=== PATIENT | male | born 1975 | race Caucasian/White ===

== ENCOUNTER 2019-04-18 12:08 | Inpatient (IN) ==
[2019-04-18] MEDS ORDERED: *HR* HYDROmorphone (PF) 1 MG/ML SYRINGE IVP ONE ×2 (12:18→14:34)
[2019-04-18] MEDS ORDERED: Ondansetron 4 MG/2 ML VIAL IVP ONE (12:18)
--- NOTE | 2019-04-18 12:35 | Emergency Department Note ---
Disposition Clinical Impression: Intractable low back pain, Paresis of lower extremity Disposition: Admitted As Inpatient Condition: Good Forms: ED Satisfaction Letter Time of Disposition: 15:20 General Adult HPI - General Chief complaint: ED Back Pain/Injury Stated complaint: back pain Time Seen by Provider: 04/18/19 12:17 Source: patient, EMS Mode of arrival: EMS Limitations: no limitations Nursing Notes Reviewed: Yes Vital Signs Reviewed: Yes - History of Present Illness HPI Narrative: 3-year-old male years of chronic low back pain had "nerves." By pain management has not seen them since. His just learned to live with it states that since Wednesday he has been mostly bedbound due to the pain he said he try to get up today 3 different times felt like something locked up in his legs were too weak he fell to the floor he did not hit he did not injure his head or neck is not on blood thinners. Denies any change of bowel or bladder habits. No recent medication changes. No ill contacts exotic food or recent travel. Patient says he has numbness in both legs but weakness in his right leg greater than his left. It hurts when he moves it but he also feels weak. About the waist there is no other complaints at all. This has never happened before. Patient denies IV drug use. Pain Scale: 6 - Related Data Home Medications Medication Instructions Recorded Confirmed Buspirone HCl [Buspar] 15 mg PO BID 10/28/15 06/15/18 Montelukast [Singulair] 10 mg PO DAILY 10/28/15 06/15/18 Tizanidine HCl [Zanaflex] 4 mg PO TID 10/28/15 06/15/18 Cymbalta 60 mg PO DAILY 06/15/18 06/15/18 Duloxetine HCl 80 mg PO DAILY 06/15/18 06/15/18 Klonopin 0.5 mg PO BID PRN 06/15/18 06/15/18 Lidoderm 5% patch 1 patch TD DAILY 06/15/18 06/15/18 Symbicort 80/4.5 80 mcg AER BID 06/15/18 06/15/18 Ventolin Hfa 108 mcg AER Q4H PRN 06/15/18 06/15/18 Previous Rx's Medication Instructions Recorded Clindamycin [Cleocin] 150 mg PO Q6HR #7 capsule 06/15/18 HYDROcodone/Acet 5/325 mg [Atco 1 tab PO Q6H PRN 4 Days #14 tab 06/15/18 5-325 mg] Allergies Allergy/AdvReac Type Severity Reaction Status Date / Time aspirin [ASA] AdvReac internal Verified 10/28/15 11:39 bleeding Cortisone AdvReac muscle Verified 10/28/15 11:39 cramps influenza virus vaccine, AdvReac Nausea Verified 10/28/15 11:39 specific [Influenza Virus Vacc,Specific] shellfish derived AdvReac Vomiting Verified 10/28/15 11:39 optifoam AdvReac Rash Uncoded 06/24/16 08:38 All systems ED: reviewed and negative except as stated. Constitutional: Reports: weakness Musculoskeletal: Reports: back pain Past Medical History - Past Medical History Attestation: Yes The following information was validated with the patient. Source: patient Medical history: Reports: COPD, GERD, hypertension Surgical history: Reports: orthopedic, other Psychiatric history: Reports: anxiety, depression - Social History Smoking Status: Current every day smoker Smokeless Tobacco Status: No Alcohol use: Reports: none Drug use: Reports: none Physical Exam - General Limitations: no limitations General appearance: alert, in distress - Head Head exam: atraumatic, normocephalic - Eye Eye exam: Present: normal appearance, PERRL, EOMI - ENT ENT exam: normal exam, normal oropharynx - Neck Neck exam: Present: normal inspection, full ROM - Chest Chest inspection: Present: normal inspection, symmetric chest wall rise - Respiratory Respiratory exam: Present: normal lung sounds bilaterally - Cardiovascular Cardiovascular exam: Present: regular rate, normal rhythm - Abdominal Exam Abdominal exam: Present: soft, Non-Tender - Rectal Exam Rectal exam: Present: normal inspection, normal rectal tone, other (Normal perineal and perianal sensation) - Extremities Exam Extremities exam: Present: normal inspection, other (Decreased ability to do straight leg raise on both legs greater on the right than on the left) - Expanded Lower Extremity Exam Gait: not tested/not observed - Back Exam Back exam: Present: normal inspection, paraspinal tenderness, straight leg raise (R), straight leg raise (L). Absent: vertebral tenderness - Neurological Exam Neurological exam: Present: alert, oriented X3, CN II-XII intact - Psychiatric Psychiatric exam: Present: normal affect, normal mood - Skin Skin exam: Present: warm, dry, intact Course - Reevaluation(s) Reevaluation #1: 43-year-old male history of chronic low back pain with the nerve cauterization in the past presents with atraumatic back pain for the past several days since Wednesday unable to get up and move around he tried 3 times a day and fell down to do weakness in his legs. Physical examination shows he is in moderate distress he does have normal rectal tone and perianal sensation straight leg is positive both left and right he does have weakness in the left and right as far as raising the leg he has good dorsal flexion and extension. He has good pulses. He says he is decreased sensation but symmetrical. Patient will get IV Dilaudid patient will get a MRI noncontrast the lumbosacral spine. Patient has no red flags for epidural abscess. Disposition pending Time: 12:36 Reevaluation #2: Discussed case with the social sciences department chair she said he is on eligible for direct to short-term rehabilitation placement discussed case with the hospitalist Dr. Pritchett who accepted the patient stable condition. Time: 15:18 Vital Signs Temperature 98.3 F 04/18/19 12:11 Pulse Rate 61 04/18/19 12:11 Respiratory Rate 16 04/18/19 12:11 Blood Pressure 177/105 04/18/19 12:11 O2 Sat by Pulse Oximetry 99 04/18/19 12:11 Temperature 98.3 F 04/18/19 12:11 Pulse Rate 68 04/18/19 14:02 Respiratory Rate 16 04/18/19 14:02 Blood Pressure 186/88 04/18/19 14:02 O2 Sat by Pulse Oximetry 99 04/18/19 12:11 Oxygen Delivery Oxygen Delivery Room Air
[2019-04-18] MEDS ORDERED: Naloxone 0.4 MG/ML INJ IVP PRN (15:58)
[2019-04-18] MEDS ORDERED: clonazePAM 0.5 MG TABLET PO PRN (16:05)
[2019-04-18] MEDS ORDERED: Albuterol 2.5 MG/3 ML NEBULIZER IH PRN (16:06)
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
[2019-04-18] MEDS: tiZANidine 4 MG TABLET PO SCH (21:07)
[2019-04-18] MEDS: Ketorolac 30 MG/ML VIAL IVP PRN (21:08)
[2019-04-18] MEDS ORDERED: Budesonide/Formoterol 80/4.5 MDI IH SCH (22:00)
[2019-04-18] MEDS: Budesonide/Formoterol 160/4.5 1 PUFF INH IH SCH (22:02)
[2019-04-19] MEDS: *HR* Enoxaparin 40 MG/0.4 ML SYRINGE SQ SCH ×2 (06:44→07:00)
[2019-04-19] MEDS: Acetaminophen 325 MG TABLET PO PRN (06:44)
[2019-04-19] MEDS: Ondansetron 4 MG/2 ML VIAL IVP PRN (06:45)
[2019-04-19] MEDS: Budesonide/Formoterol 160/4.5 1 PUFF INH IH SCH ×2 (08:14→19:43)
[2019-04-19] MEDS: Tiotropium 18 MCG inhalation IH SCH (08:20)
[2019-04-19] MEDS: tiZANidine 4 MG TABLET PO SCH ×3 (08:40→20:49)
[2019-04-19 08:58] LABS: Basophils # 0.1 K/mcL (0.0-0.2); Basophils % 0.5 %; Eosinophils # 0.2 K/mcL (0.0-0.6); Eosinophils % 1.5 %; Hematocrit 42.8 % (37.5-50.1); Immature Granulocytes % 0.5 % (0-4); Lymphocytes # 2.8 K/mcL (0.6-4.6); Lymphocytes % 23.3 %; Mean Corpuscular Hemoglobin 32.4 pg (28.0-33.3); Mean Corpuscular Volume 92.4 fL (83.0-100.0); Mean Platelet Volume 9.8 fL (9.4-12.4); Monocytes # 1.3 K/mcL (0.0-1.3); Monocytes % 10.4 %; Neutrophils # 7.7 K/mcL (1.6-8.9); Platelet Count 229 K/mcL (140-400); Red Blood Count 4.63 M/mcL (4.19-5.50); Red Cell Distribution Width 12.8 % (11.5-14.5); Segmented Neutrophils % 63.8 %
[2019-04-19] MEDS ORDERED: NON-FORMULARY MEDICATION 1 EACH EACH (Tiotropium Bromide [Spiriva Respimat] 4 GM) IH SCH (09:00)
[2019-04-19 09:13] LABS: BUN/Creatinine Ratio 13 (6-26); Blood Urea Nitrogen 12 mg/dL (6-20); Calcium 9.3 mg/dL (8.6-10.3); Carbon Dioxide 31 mEq/L (23-29); Chloride 99 mEq/L (98-107); Glucose 130 mg/dL (70-105); Magnesium 1.8 mg/dL (1.6-2.6); Osmolality,Calculated 294 (280-300); Potassium 3.3 mEq/L (3.5-5.1); Sodium 141 mEq/L (136-145); eGFR For African Americans > 60 (> 60); eGFR For Non-African Americans > 60 (> 60)
--- NOTE | 2019-04-19 11:05 | Spine Progress Note ---
Date of Encounter: 04/19/19 Time of Encounter: 11:02 - Assessment and Plan (1) Lumbar degenerative disc disease Current Visit: Yes Status: Chronic On exam he is awake and alert in mild distress secondary to back pain. Afebrile vital signs stable. His hips move symmetrically. He fires all lower extremity motor groups with good strength bilaterally 5 on a motor scale. He has a negative straight leg raise. He has no clonus. MRI of the lumbar spine reveals mild degenerative changes and a disc bulge at L4-5 without significant foraminal or canal stenosis. Impression: 1) lumbar degenerative disc disease 2) back pain Plan: The patient does not require surgical intervention. He is given a be treated on the outpatient basis nonoperatively which include a formal physical therapy and low back program as well as consideration of interventional pain management strategies. We will set up follow-up with Dr. Stoddard in the spine Center, as he does not wish to return to Dr. Harley. Dr. Stoddard will arrange additional nonoperative treatments. Subjective Principal diagnosis: Back pain Interval history: Mr. Sahu a 43-year-old male whose had intermittent exacerbations of axial back pain associated with spasms. His most recent episode happened over the weekend. He states there was a period of time where he had difficulty moving his legs but this is transient and has resolved completely. He came into the emergency department due to his intractable pain. He has had prior treatment with Dr. Harley in pain management approximate 2 years ago which included medications , lumbar epidural steroid injections, and radiofrequency ablation. He also had physical therapy at that time. His current pain is a 3 on a pain scale controlled on a combination of Toradol and Tylenol. He denies radicular symptoms in the lower extremities, fevers or chills, or weakness the lower extremities. He denies bowel and bladder symptomatology. Objective Vital signs: Vital Signs Temp Pulse Resp BP Pulse Ox 04/19/19 08:18 18 95 04/19/19 06:21 98.2 F 80 18 164/87 95 04/19/19 03:03 97.6 F 57 17 159/90 97 04/18/19 22:41 98.1 F 64 17 143/77 97 04/18/19 22:03 16 98 04/18/19 21:47 167/88 04/18/19 20:54 98.3 F 66 14 180/104 95 04/18/19 19:50 18 157/88 04/18/19 16:23 65 16 173/103 04/18/19 14:02 68 16 186/88 04/18/19 12:11 98.3 F 61 16 177/105 99 Intake and Output 04/18/19 04/19/19 04/19/19 23:59 07:59 15:59 Intake Total 240 / 240 Output Total 150 / 150 550 / 550 Balance -150 / -150 -550 / -310 240 / -310 Intake: Oral 240 / 240 Output: Urine 150 / 150 550 / 550 Other: Meal Breakfast Percent of Meal Consumed 100% - Labs CBC & BMP: 04/19/19 08:32 04/19/19 08:32 Labs: Abnormal lab results WBC 12.0 K/mcL (4.3-11.1) H 04/19/19 08:32 Potassium 3.3 mEq/L (3.5-5.1) L 04/19/19 08:32 Carbon Dioxide 31 mEq/L (23-29) H 04/19/19 08:32 Glucose 130 mg/dL (70-105) H 04/19/19 08:32 Consult Discharge Plan - Plan Referrals: Rick Garcia MD [Primary Care Provider] -
--- NOTE | 2019-04-19 12:21 | Internal Med Progress Note ---
Hospitalist Progress Note - Encounter Date of Encounter: 04/19/19 Time of Encounter: 11:45 - Subjective Interval History: Seen at bedside, is feelign ebtter than yesterday. HIs back pain is also better than yesterday. Denies any trauma, fall, fever, chills, pullingg heavy weight. No overnigth events. - Exam Vitals: Temp Pulse Resp BP Pulse Ox 97.9 F 74 18 139/74 96 04/19/19 11:39 04/19/19 11:39 04/19/19 11:39 04/19/19 11:39 04/19/19 11:39 Exam: General: Alert and oriented, no physical distress, able to follow commands. HEENT: No thyromegaly, no lymphadenopathy, no discharge. Eyes: No discharge. Respiratory: Normal vesicular breathing, no added sounds, breathing equal in both sides. CVS: Normal heart sounds, no murmurs, no edema. Extremities: No peripheral edema, peripheral pulses intact.Reflexes 2+ in knee and ankle joints. Lymph nodes: No lymphadenopathy Gastrointestinal: Soft, nontender abdomen, normal abdominal sounds. No distention noted. Genitourinary: No paravertebral tenderness. Neurological: Alert and oriented. No focal deficits. - Assessment and Plan (1) Paresis of lower extremity Current Visit: Yes Status: Acute Assessment and Plan: -Improving, etiolgoy unlcear. -MRI of lumbar does reveal stable and no disc bulge at L4-L5 with associated central annular tear -Ortho on board, appreciate recommendations. -PT/OT on board, further plan as per PT/OT> -Continue with current pain management -Falls precautions (2) Intractable low back pain Current Visit: Yes Status: Acute Assessment and Plan: -Pain management with oxy and ketorolac. -Outpt pain mangemetn follow up recomemded. (3) HTN (hypertension) Current Visit: No Status: Chronic Assessment and Plan: -BP stable -Hydralazine as needed (4) COPD (chronic obstructive pulmonary disease) Current Visit: No Status: Chronic Assessment and Plan: -Not in acute exacerbation -Continue the breathing treaments -COntinue the home meds including spiriva nad symbicort (5) DVT prophylaxis Current Visit: Yes Status: Acute Assessment and Plan: -Lovenox (6) Hypokalemia Current Visit: Yes Status: Acute Assessment and Plan: -K of 3.3 -Repleted. -Repeeat levels tomorrow - Time Spent with Patient Total time spent is greater than 50% in coordination of care (as documented) at patient's floor/unit and/or counseling patient: Internal Medicine: Result - Labs CBC & Chem 7: 04/19/19 08:32 04/19/19 08:32 Labs: Short CBC 04/19/19 Range/Units 08:32 WBC 12.0 H (4.3-11.1) K/mcL Hgb 15.0 (12.9-16.9) g/dL Hct 42.8 (37.5-50.1) % Plt Count 229 (140-400) K/mcL Neutrophils # 7.7 (1.6-8.9) K/mcL BMP 04/19/19 08:32 Sodium 141 Potassium 3.3 L Chloride 99 Carbon Dioxide 31 H BUN 12 Creatinine 0.89 Glucose 130 H Calcium 9.3 - Impressions Impressions Lumbar Spine MRI 04/18/19 12:18 IMPRESSION: Stable annular disc bulge at L4-5 with associated central annular tear. D/ / Bakari Hammer MD / Bakari Hammer MD Interpreting Provider: Bakari Hammer MD Consult Discharge Plan - Plan Referrals: Rick Garcia MD [Primary Care Provider] - (3) HTN (hypertension) Qualifiers: Hypertension type: unspecified secondary hypertension Qualified Code(s): I15.9 - Secondary hypertension, unspecified; I15 - Secondary hypertension (4) COPD (chronic obstructive pulmonary disease) Qualifiers: COPD type: unspecified COPD Qualified Code(s): J44.9 - Chronic obstructive pulmonary disease, unspecified
[2019-04-19] MEDS: Ketorolac 30 MG/ML VIAL IVP PRN (16:53)
[2019-04-19] MEDS: Sucralfate 1 GM TABLET PO SCH (20:49)
[2019-04-19] MEDS: *HR* OxyCODONE Immed Rel 5 MG TABLET PO PRN (20:49)
[2019-04-20 02:49] LABS: BUN/Creatinine Ratio 13 (6-26); Blood Urea Nitrogen 11 mg/dL (6-20); Calcium 8.7 mg/dL (8.6-10.3); Carbon Dioxide 32 mEq/L (23-29); Chloride 103 mEq/L (98-107); Glucose 113 mg/dL (70-105); Osmolality,Calculated 290 (280-300); Potassium 3.8 mEq/L (3.5-5.1); Sodium 140 mEq/L (136-145); eGFR For African Americans > 60 (> 60); eGFR For Non-African Americans > 60 (> 60)
[2019-04-20] MEDS: Acetaminophen 325 MG TABLET PO PRN ×2 (05:47→11:46)
[2019-04-20] MEDS: Tiotropium 18 MCG inhalation IH SCH (08:11)
[2019-04-20] MEDS: Budesonide/Formoterol 160/4.5 1 PUFF INH IH SCH ×2 (08:13→20:40)
[2019-04-20] MEDS: *HR* Enoxaparin 40 MG/0.4 ML SYRINGE SQ SCH (08:52)
[2019-04-20] MEDS: tiZANidine 4 MG TABLET PO SCH ×3 (08:53→21:21)
[2019-04-20] MEDS: Sucralfate 1 GM TABLET PO SCH ×2 (08:53→21:21)
[2019-04-20] MEDS: *HR* OxyCODONE Immed Rel 5 MG TABLET PO PRN (08:53)
[2019-04-20] MEDS ORDERED: DULOXETINE PO SCH (09:00)
[2019-04-20] MEDS ORDERED: cloNIDine HCl 0.1 MG TABLET PO ONE (09:21)
[2019-04-20 12:31] LABS: Basophils % 0.3 %; Eosinophils % 0.4 %; Hematocrit 38.9 % (37.5-50.1); Immature Granulocytes % 1.1 % (0-4); Lymphocytes # 0.9 K/mcL (0.6-4.6); Lymphocytes % 7.8 %; Mean Corpuscular HGB Conc 34.4 g/dL (31.6-35.5); Mean Corpuscular Hemoglobin 31.7 pg (28.0-33.3); Monocytes # 0.2 K/mcL (0.0-1.3); Monocytes % 1.8 %; Neutrophils # 9.6 K/mcL (1.6-8.9); Platelet Count 180 K/mcL (140-400); Red Blood Count 4.23 M/mcL (4.19-5.50); Red Cell Distribution Width 13.1 % (11.5-14.5); Segmented Neutrophils % 88.6 %; White Blood Count 10.9 K/mcL (4.3-11.1)
[2019-04-20 12:54] LABS: Hemoglobin 13.4 g/dL (12.9-16.9)
--- NOTE | 2019-04-20 15:01 | Internal Med Progress Note ---
Hospitalist Progress Note - Encounter Date of Encounter: 04/20/19 Time of Encounter: 11:15 - Subjective Interval History: Seen at [facility]. Complaining of the pain in the lower back, complaining of the same pain and spasms in the back he had before coming to the hosp. . Patient denies any fever or chills. Looks like he is in distress. Deneis any dysuria, hematuria, diarrhea or constipation. Denies any SOB or chest pain. Denies sore throat - Exam Vitals: Temp Pulse Resp BP Pulse Ox 101.3 F H 101 16 150/84 94 04/20/19 10:50 04/20/19 11:17 04/20/19 10:50 04/20/19 10:50 04/20/19 11:17 Exam: General: Alert and oriented, moderate physical distress, able to follow commands. Respiratory: Normal vesicular breathing, no added sounds, breathing equal in bot h sides. CVS: Normal heart sounds, no murmurs, no edema. Extremities: No peripheral edema, peripheral pulses intact.Reflexes 2+ in knee and ankle joints. Lymph nodes: No lymphadenopathy Gastrointestinal: Soft, nontender abdomen, normal abdominal sounds. No distention noted. Genitourinary: No paravertebral tenderness. Neurological: Alert and oriented. No focal deficits. - Assessment and Plan (1) Paresis of lower extremity Current Visit: Yes Status: Acute Assessment and Plan: -Improving, etiolgoy unlcear. -MRI of lumbar does reveal stable and no disc bulge at L4-L5 with associated central annular tear -Ortho on board, appreciate recommendations. -PT/OT on board, today could not get PT/OT evaluation as the pt was not feeling goodd -Continue with current pain management -Falls precautions (2) Intractable low back pain Current Visit: Yes Status: Acute Assessment and Plan: -Pain management with oxy and ketorolac. -Outpt pain mangemetn follow up recomemded. (3) HTN (hypertension) Current Visit: No Status: Chronic Assessment and Plan: -BP was elevated in the mornin, is not any meidcations at home. -Was given clonidine 0.1 mg PO with some relief -Has been ordered hydralazine for the BP above 180 systolic -Cont to monitor (4) COPD (chronic obstructive pulmonary disease) Current Visit: No Status: Chronic Assessment and Plan: -Not in acute exacerbation -Continue the breathing treaments -COntinue the home meds including spiriva nad symbicort (5) DVT prophylaxis Current Visit: Yes Status: Acute Assessment and Plan: -Lovenox (6) Hypokalemia Current Visit: Yes Status: Acute Assessment and Plan: -resolved (7) Fever Current Visit: Yes Status: Acute Assessment and Plan: -He developed a fever of 101.3. -Etiology was uncleat -Pt was companing of the pain in the back before he developed the fever. -No hypotension but was mildly tachycardaic. -CBC was ordered [facility] showed normal count but mild neutrophil elevation. -Urine and blood cutures pending, -LActic acid normal -Went to see the pt again and the pt was sleeping comfortably. -Will chek the vitals again before initiaing the antibiotics. -Suspect he could be withdrawing from any controlled substance, wull order UDS. -If continues to have fever, or any other clinicla worseing, will initiate the antibiotcs. - Time Spent with Patient Total time spent is greater than 50% in coordination of care (as documented) at patient's floor/unit and/or counseling patient: Internal Medicine: Result - Labs CBC & Chem 7: 04/20/19 11:50 04/20/19 01:38 Labs: Short CBC 04/20/19 Range/Units 11:50 WBC 10.9 (4.3-11.1) K/mcL Hgb 13.4 D (12.9-16.9) g/dL Hct 38.9 (37.5-50.1) % Plt Count 180 (140-400) K/mcL Neutrophils # 9.6 H (1.6-8.9) K/mcL BMP 04/20/19 01:38 Sodium 140 Potassium 3.8 Chloride 103 Carbon Dioxide 32 H BUN 11 Creatinine 0.87 Glucose 113 H Calcium 8.7 - Impressions Impressions Chest X-Ray 04/20/19 11:19 IMPRESSION: 1. No focal consolidation. 2. A right-sided PICC line is not identified. Findings were discussed with Matt Painting MD at 12:09 pm on 04/20/2019. D/ / Katrina Simons MD / Katrina Simons MD Interpreting Provider: Katrina Simons MD Consult Discharge Plan - Plan Referrals: Rick Garcia MD [Primary Care Provider] - (3) HTN (hypertension) Qualifiers: Hypertension type: unspecified secondary hypertension Qualified Code(s): I15.9 - Secondary hypertension, unspecified; I15 - Secondary hypertension (4) COPD (chronic obstructive pulmonary disease) Qualifiers: COPD type: unspecified COPD Qualified Code(s): J44.9 - Chronic obstructive pulmonary disease, unspecified (7) Fever Qualifiers: Fever type: unspecified Qualified Code(s): R50.9 - Fever, unspecified
[2019-04-20] MEDS: Ketorolac 30 MG/ML VIAL IVP PRN (15:56)
[2019-04-20 17:08] LABS: Basophils # 0.1 K/mcL (0.0-0.2); Basophils % 0.4 %; Eosinophils # 0.1 K/mcL (0.0-0.6); Eosinophils % 0.5 %; Hematocrit 38.2 % (37.5-50.1); Immature Granulocytes % 0.7 % (0-4); Lymphocytes % 8.8 %; Mean Corpuscular Hemoglobin 31.9 pg (28.0-33.3); Mean Corpuscular Volume 93.6 fL (83.0-100.0); Monocytes # 1.2 K/mcL (0.0-1.3); Platelet Count 157 K/mcL (140-400); Red Blood Count 4.08 M/mcL (4.19-5.50); Red Cell Distribution Width 13.2 % (11.5-14.5); Segmented Neutrophils % 82.6 %
[2019-04-20 17:09] LABS: Lymphocytes # 1.6 K/mcL (0.6-4.6); Neutrophils # 14.5 K/mcL (1.6-8.9); White Blood Count 17.6 K/mcL (4.3-11.1)
[2019-04-20 17:22] LABS: Amphetamine Screen,Urine Negative ng/mL (Cutoff=1000); Barbiturate Screen,Urine Negative ng/mL (Cutoff=200); Benzodiazepines Screen,Urine Negative ng/mL (Cutoff=200); Cannabinoid Screen,Urine Negative ng/mL (Cutoff = 50); Cocaine Screen,Urine Negative ng/mL (Cutoff= 300); Opiate Screen,Urine Negative ng/mL (Cutoff=300); Phencyclidine Screen,Urine Negative ng/mL (Cutoff=25)
[2019-04-20] MEDS: Piperacillin/Tazobactam 3.375 GM in 0.9 % Sodium Chloride Mini Bag 100 ML IVPB SCH ×2 (18:53→22:52)
[2019-04-20] MEDS: clonazePAM 0.5 MG TABLET PO SCH (21:21)
[2019-04-21 05:46] LABS: Basophils # 0.1 K/mcL (0.0-0.2); Basophils % 0.4 %; Eosinophils # 0.1 K/mcL (0.0-0.6); Eosinophils % 1.2 %; Hematocrit 38.7 % (37.5-50.1); Hemoglobin 13.4 g/dL (12.9-16.9); Immature Granulocytes % 0.5 % (0-4); Lymphocytes # 1.4 K/mcL (0.6-4.6); Lymphocytes % 12.2 %; Mean Corpuscular HGB Conc 34.6 g/dL (31.6-35.5); Mean Corpuscular Hemoglobin 32.3 pg (28.0-33.3); Mean Corpuscular Volume 93.3 fL (83.0-100.0); Mean Platelet Volume 10.3 fL (9.4-12.4); Monocytes # 1.2 K/mcL (0.0-1.3); Monocytes % 10.9 %; Neutrophils # 8.4 K/mcL (1.6-8.9); Platelet Count 167 K/mcL (140-400); Red Blood Count 4.15 M/mcL (4.19-5.50); Red Cell Distribution Width 13.3 % (11.5-14.5); Segmented Neutrophils % 74.8 %; White Blood Count 11.3 K/mcL (4.3-11.1)
[2019-04-21 06:02] LABS: Alanine Aminotransferase 34 Units/L (7-52); Albumin 3.8 g/dL (3.5-5.7); Albumin/Globulin Ratio 1.7 (1.1-2.2); Alkaline Phosphatase 113 Units/L (34-104); Aspartate Amino Transferase 35 Units/L (13-39); BUN/Creatinine Ratio 17 (6-26); Bilirubin,Total 1.1 mg/dL (0.3-1.0); Blood Urea Nitrogen 18 mg/dL (6-20); Carbon Dioxide 31 mEq/L (23-29); Chloride 100 mEq/L (98-107); Globulin 2.3 g/dL (2.4-3.5); Glucose 115 mg/dL (70-105); Osmolality,Calculated 293 (280-300); Potassium 3.9 mEq/L (3.5-5.1); Sodium 140 mEq/L (136-145); Total Protein 6.1 g/dL (6.4-8.9); eGFR For African Americans > 60 (> 60); eGFR For Non-African Americans > 60 (> 60)
[2019-04-21] MEDS: *HR* Enoxaparin 40 MG/0.4 ML SYRINGE SQ SCH (06:02)
[2019-04-21] MEDS: Tiotropium 18 MCG inhalation IH SCH (07:31)
[2019-04-21] MEDS: Budesonide/Formoterol 160/4.5 1 PUFF INH IH SCH ×2 (07:31→19:58)
[2019-04-21] MEDS: clonazePAM 0.5 MG TABLET PO SCH ×2 (07:39→20:30)
[2019-04-21] MEDS: tiZANidine 4 MG TABLET PO SCH ×3 (07:39→20:30)
[2019-04-21] MEDS: Sucralfate 1 GM TABLET PO SCH ×2 (07:39→20:30)
[2019-04-21] MEDS: Ondansetron 4 MG/2 ML VIAL IVP PRN (07:39)
[2019-04-21] MEDS: Piperacillin/Tazobactam 3.375 GM in 0.9 % Sodium Chloride Mini Bag 100 ML IVPB SCH (07:40)
[2019-04-21] MEDS: *HR* OxyCODONE Immed Rel 5 MG TABLET PO PRN ×2 (07:58→20:35)
--- NOTE | 2019-04-21 08:32 | Internal Med Progress Note ---
Hospitalist Progress Note - Encounter Date of Encounter: 04/21/19 Time of Encounter: 08:15 - Subjective Interval History: Patient seen at bedside. It was noticed overnight that the patient previous IV site from where the IV was removed is swollen and tender with eryhtema, got called by the nurse that swelling has increased alongwth the redness and the pt is feeling tightness in the left arm. Denies any numbness and tingling in the arm. Pt endorses pain and the increased swelling, denies chills but has been feelign warm. Pt denies any pain in the back today. Denies any other complaints. - Exam Vitals: Temp Pulse Resp BP Pulse Ox 98.0 F 85 16 198/87 94 04/21/19 07:08 04/21/19 07:08 04/21/19 07:33 04/21/19 07:08 04/21/19 07:33 Exam: General: Alert and oriented, moderate physical distress, able to follow commands. Respiratory: Normal vesicular breathing, no added sounds, breathing equal in both sides. CVS: Normal heart sounds, no murmurs, no edema. Extremities: Left arm emaxined , redness and swellign noted, incrased as comapred to the markings from last night, no discharge. Pulses are equal on both sided both radail and brachial .Power 5/5 , no loss of snsations. Lymph nodes: No lymphadenopathy Gastrointestinal: Soft, nontender abdomen, normal abdominal sounds. No distention noted. Genitourinary: No paravertebral tenderness. Neurological: Alert and oriented. No focal deficits. - Assessment and Plan (1) Swelling of left extremity Current Visit: Yes Status: Acute Assessment and Plan: -Has swellign at the site of remoaval of IV line -Could be cellulitis with abscess formation. Necrotzing fascits or compartment syndrome needs to be ruled out. -WBC count imporved from last night, on antibiotics. -COntinue the antibiotics -Order CPK , based upon the results, will consult ortho to r/o compartmemt syndr ome. -Order x ray of the elbow -Await on the culutre results. (2) Paresis of lower extremity Current Visit: Yes Status: Acute Assessment and Plan: -Improving, etiolgoy unlcear. -MRI of lumbar does reveal stable and no disc bulge at L4-L5 with associated central annular tear -Ortho on board, appreciate recommendations. -PT/OT on board, recommending physical therpa post discharge -Continue with current pain management -Falls precautions (3) Intractable low back pain Current Visit: Yes Status: Acute Assessment and Plan: -Pain management with oxy and ketorolac. -Outpt pain mangemetn follow up recomemded. (4) HTN (hypertension) Current Visit: No Status: Chronic Assessment and Plan: -Pt BP has been elevated -continue hydralazine. -As the BP is consistently elevted, will order amlodipine, seems like pt most autumn has HTN (5) COPD (chronic obstructive pulmonary disease) Current Visit: No Status: Chronic Assessment and Plan: -Not in acute exacerbation -Continue the breathing treaments -COntinue the home meds including spiriva nad symbicort (6) DVT prophylaxis Current Visit: Yes Status: Acute Assessment and Plan: -Lovenox (7) Fever Current Visit: Yes Status: Acute Assessment and Plan: -He developed a fever of 101.3. - No overnight fever -Was started on antibiotics -WBC count improving -Cellulits seems to be the clintley source, pt could be develpoing abscess. -Continue the antibiotcs -Will consult surgery if the pt needs I & D - Time Spent with Patient Total time spent is greater than 50% in coordination of care (as documented) at patient's floor/unit and/or counseling patient: Internal Medicine: Result - Labs CBC & Chem 7: 04/21/19 04:56 04/21/19 04:56 Labs: Short CBC 04/20/19 04/20/19 04/21/19 Range/Units 11:50 16:57 04:56 WBC 10.9 17.6 H D 11.3 H (4.3-11.1) K/mcL Hgb 13.4 D 13.0 13.4 (12.9-16.9) g/dL Hct 38.9 38.2 38.7 (37.5-50.1) % Plt Count 180 157 167 (140-400) K/mcL Neutrophils # 9.6 H 14.5 H 8.4 (1.6-8.9) K/mcL BMP 04/21/19 04:56 Sodium 140 Potassium 3.9 Chloride 100 Carbon Dioxide 31 H BUN 18 Creatinine 1.04 Glucose 115 H Calcium 9.0 Liver Function 04/21/19 Range/Units 04:56 Total Bilirubin 1.1 H (0.3-1.0) mg/dL AST 35 (13-39) Units/L ALT 34 (7-52) Units/L Alkaline Phosphatase 113 H (34-104) Units/L Albumin 3.8 (3.5-5.7) g/dL - Impressions Impressions Chest X-Ray 04/20/19 11:19 IMPRESSION: 1. No focal consolidation. 2. A right-sided PICC line is not identified. Findings were discussed with Matt Painting MD at 12:09 pm on 04/20/2019. D/ / Katrina Simons MD / Katrina Simons MD Interpreting Provider: Katrina Simons MD Consult Discharge Plan - Plan Referrals: Rick Garcia MD [Primary Care Provider] - (4) HTN (hypertension) Qualifiers: Hypertension type: essential hypertension Qualified Code(s): I10 - Essential (primary) hypertension (5) COPD (chronic obstructive pulmonary disease) Qualifiers: COPD type: unspecified COPD Qualified Code(s): J44.9 - Chronic obstructive pulmonary disease, unspecified (7) Fever Qualifiers: Fever type: unspecified Qualified Code(s): R50.9 - Fever, unspecified
[2019-04-21 08:44] LABS: Creatine Kinase 171 Units/L (30-223)
[2019-04-21] MEDS: amLODIPine 5 MG TABLET PO SCH (09:42)
[2019-04-21] MEDS ORDERED: Aminoglycoside Consult 1 EACH MC ONE (11:36)
--- NOTE | 2019-04-21 12:04 | Orthopedic Consult Note ---
Date of Encounter: 04/21/19 Time of Encounter: 12:30 Assessment and Plan (1) Erythema Current Visit: Yes Status: Acute (2) Swelling of left extremity Current Visit: Yes Status: Acute History of Present Illness Chief complaint: swollen/red left arm HPI: Mr. Murphy is a 43 year old male presenting to [facility] for severe intractable back pain. He has had improvement in his back pain however after IV removal yesterday patient began having pain and noted redness to his left anticubital fossa. He states that other than the IV he denies any other injury or trauma to the area. Patient seen at bedside. Spouse at bedside. On exam, patient is resting supine in bed. In no acute distress. Left upper extremity notes a large appx 10cm distal to proximal area of erythema surrounding the left anticubital fossa. There are two markings noting that the distal to proximal distance of spread has increased approximately 2cm overnight. Central to this erythema is the IV insertion site which appears to have small eschar with no petechiae, drainage, or vesicles noted surrounding. On palpation patient there is mild nonpitting edema in the area of erythema and expresses tenderness to palpation most focused at the IV insertion site. There is a palpable cord extending distally from the IV insertion site appx 2cm. On palpation there is no appreciable induration, pitting edema, or fluctuance. Patient has full shoulder, elbow, and wrist motion and strength. 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 Of note, patient is odorous and patient's hands noted to have dirt under his nails and in hand creases. Elbow xray reviewed which demonstrates no soft tissue gas, acute fracture, or gross abnormality. With patient having received both IV Vancomycin and Zosyn as well as the fact this area developed at IV site, significant concern exists for venous thrombus. Infection, however, such as cellulitits with developing abscess cannot be excluded. Recommendation for venous doppler to evaluate for thrombus. Suspect superficial venous thrombus. If positive, would recommend NSAID therapy and hot and cold compresses. Patient is presentlyon DVT prophylaxis. If doppler is negative, would recommend CT to evaluate for developing abscess. Would recommend infectious disease consult at that point as patient has been receiving IV antibiotics during his hospital stay. Of note, patient has been refusing bathing while here at hospital. Staff is strongly encouraged to bathe patient and encourage scheduled hygiene regimen. Thank you for this consultation. Please reach out with any questions or concerns regarding this patient's orthopedic health. We will continue to follow. Past Med Surg Social Fam HX - Past Medical History Medical history: COPD, GERD, hypertension Additional medical history: hiatal hernia. dev. septum. right arm weakness from surgeries Psychiatric history: anxiety, depression - Past Surgical History Surgical History: orthopedic, other Additional surgical history: R shoulder scope X2. R arm surgery. nasal - Social History Smoking Status: Current every day smoker Smokeless Tobacco Status: No Alcohol use: none Drug use: none - Family History Father Hx Family Cardiac Disorders: Yes (heart attacks, heart stents, open heart surgery) Medications and Allergies Montelukast [Singulair] 10 mg PO HS 10/28/15 [History] Albuterol Sulfate [Ventolin Hfa] 2 puff IH Q4H PRN #0 06/15/18 [History] Budesonide/Formoterol 160/4.5 [Symbicort 160/4.5] 2 puff IH BIDR #0 06/15/18 [History] Duloxetine HCl [Cymbalta] 60 mg PO DAILY #0 06/15/18 [History] Lidocaine Patch [Lidoderm 5% patch] 1 patch TP DAILY PRN #0 06/15/18 [History] clonazePAM [Clonazepam] 0.25 - 0.5 mg PO BID PRN #0 06/15/18 [History] Tiotropium [place] [Spiriva Respimat] 2 puff IH DAILY 04/18/19 [History] Buspirone HCl [Buspar] 15 mg PO BID 04/19/19 [History] Diclofenac Sodium 1 appl TP BID PRN 04/19/19 [History] Meloxicam 15 mg PO DAILY 04/19/19 [History] Methocarbamol [Robaxin] 500 mg PO TID PRN 04/19/19 [History] Omeprazole [PriLOSEC] 40 mg PO HS 04/19/19 [History] Sucralfate [Carafate] 1 gm PO HS 04/19/19 [History] Tizanidine HCl 8 mg PO Q8H 04/19/19 [History] Allergy/AdvReac Type Severity Reaction Status Date / Time aspirin [ASA] AdvReac internal Verified 10/28/15 11:39 bleeding Cortisone AdvReac muscle Verified 10/28/15 11:39 cramps influenza virus vaccine, AdvReac Nausea Verified 10/28/15 11:39 specific [Influenza Virus Vacc,Specific] shellfish derived AdvReac Vomiting Verified 10/28/15 11:39 optifoam AdvReac Rash Uncoded 06/24/16 08:38 All Systems Reviewed: The remainder of the systems were reviewed and are negative Physical Exam - Constitutional Vitals: Temp Pulse Resp BP Pulse Ox 98.0 F 85 16 143/73 94 04/21/19 07:08 04/21/19 07:08 04/21/19 07:33 04/21/19 09:43 04/21/19 07:33 Results - Labs Result Diagrams: 04/22/19 06:39 04/22/19 06:39 Labs: Abnormal lab results WBC 11.3 K/mcL (4.3-11.1) H 04/21/19 04:56 RBC 4.15 M/mcL (4.19-5.50) L 04/21/19 04:56 Neutrophils # 14.5 K/mcL (1.6-8.9) H 04/20/19 16:57 Potassium 3.3 mEq/L (3.5-5.1) L 04/19/19 08:32 Carbon Dioxide 31 mEq/L (23-29) H 04/21/19 04:56 Glucose 115 mg/dL (70-105) H 04/21/19 04:56 Total Bilirubin 1.1 mg/dL (0.3-1.0) H 04/21/19 04:56 Alkaline Phosphatase 113 Units/L (34-104) H 04/21/19 04:56 Serum Total Protein 6.1 g/dL (6.4-8.9) L 04/21/19 04:56 Globulin 2.3 g/dL (2.4-3.5) L 04/21/19 04:56 H & H 04/20/19 04/20/19 04/21/19 Range/Units 11:50 16:57 04:56 Hgb 13.4 D 13.0 13.4 (12.9-16.9) g/dL Hct 38.9 38.2 38.7 (37.5-50.1) % All other labs normal. Consult Discharge Plan - Plan Referrals: Rick Garcia MD [Primary Care Provider] -
[2019-04-21] MEDS ORDERED: Methocarbamol 500 MG TABLET PO PRN (13:43)
[2019-04-21] MEDS ORDERED: (Diclofenac Sodium 1 APPL) TP PRN (13:43)
[2019-04-22] MEDS: Acetaminophen 325 MG TABLET PO PRN (06:30)
--- NOTE | 2019-04-22 06:31 | Orthopedics Progress Note ---
Date of Encounter: 04/22/19 Time of Encounter: 06:30 Subjective Principal diagnosis: Back pain Interval history: Patient seen this morning, evaluation of left upper extremity reveals full motion minimal swelling and minimal discomfort. Doppler report is positive on the inside, continue with appropriate anticoagulation and warm compresses. Reconsult if necessary Objective Vital signs: Vital Signs Temp Pulse Resp BP Pulse Ox 04/22/19 04:46 98.4 F 83 17 163/83 96 04/22/19 00:06 98.8 F 74 16 145/86 95 04/21/19 20:30 96 04/21/19 19:59 18 96 04/21/19 19:16 98.9 F 77 17 183/91 96 04/21/19 15:33 98.0 F 88 16 147/76 96 04/21/19 12:18 98.0 F 83 16 161/91 93 04/21/19 09:43 143/73 04/21/19 07:33 16 94 04/21/19 07:08 98.0 F 85 16 198/87 94 Intake and Output 04/21/19 04/21/19 04/22/19 15:59 23:59 07:59 Intake Total 1070 / 1570 500 / 1570 Output Total 200 / 800 600 / 800 Balance 870 / 770 -100 / 770 Intake: IV Fluids 350 / 850 500 / 850 Zosyn 3.375 GM In 0.9 % Sodium 100 / 100 Chloride (Mini-Bag +) 100 ML @ 25 mls/hr IVPB Q8HR [facility] Rx#: [id number] Vancocin 1,500 MG In 0.9 % 250 / 250 Sodium Chloride 250 ML @ 166.67 mls/hr IVPB Q12H [facility] Rx#: [id number] Vancocin 1,750 MG In 0.9 % 500 / 500 Sodium Chloride 500 ML @ 333.3 mls/hr IVPB Q12H [facility] Rx#: [id number] Oral 720 / 720 Output: Urine 200 / 800 600 / 800 Other: Meal Lunch Percent of Meal Consumed 100% # Voids 1 # Bowel Movements 1 Weight 97.7 kg Patient Weight 04/22/19 23:59 Weight 97.7 kg - Labs CBC & BMP: 04/21/19 04:56 04/21/19 04:56 Labs: Abnormal lab results WBC 11.3 K/mcL (4.3-11.1) H 04/21/19 04:56 RBC 4.15 M/mcL (4.19-5.50) L 04/21/19 04:56 Neutrophils # 14.5 K/mcL (1.6-8.9) H 04/20/19 16:57 Potassium 3.3 mEq/L (3.5-5.1) L 04/19/19 08:32 Carbon Dioxide 31 mEq/L (23-29) H 04/21/19 04:56 Glucose 115 mg/dL (70-105) H 04/21/19 04:56 Total Bilirubin 1.1 mg/dL (0.3-1.0) H 04/21/19 04:56 Alkaline Phosphatase 113 Units/L (34-104) H 04/21/19 04:56 Serum Total Protein 6.1 g/dL (6.4-8.9) L 04/21/19 04:56 Globulin 2.3 g/dL (2.4-3.5) L 04/21/19 04:56 Consult Discharge Plan - Plan Referrals: Rick Garcia MD [Primary Care Provider] -
[2019-04-22 07:02] VITALS: BP 158/87
[2019-04-22 07:12] LABS: Basophils # 0.1 K/mcL (0.0-0.2); Basophils % 0.4 %; Eosinophils # 0.2 K/mcL (0.0-0.6); Eosinophils % 1.3 %; Hematocrit 39.3 % (37.5-50.1); Hemoglobin 13.6 g/dL (12.9-16.9); Immature Granulocytes % 0.6 % (0-4); Lymphocytes # 1.6 K/mcL (0.6-4.6); Lymphocytes % 12.9 %; Mean Corpuscular HGB Conc 34.6 g/dL (31.6-35.5); Mean Corpuscular Hemoglobin 32.3 pg (28.0-33.3); Mean Corpuscular Volume 93.3 fL (83.0-100.0); Mean Platelet Volume 10.1 fL (9.4-12.4); Monocytes # 1.9 K/mcL (0.0-1.3); Monocytes % 15.4 %; Neutrophils # 8.7 K/mcL (1.6-8.9); Platelet Count 181 K/mcL (140-400); Red Blood Count 4.21 M/mcL (4.19-5.50); Red Cell Distribution Width 13.2 % (11.5-14.5); Segmented Neutrophils % 69.4 %; White Blood Count 12.6 K/mcL (4.3-11.1)
[2019-04-22 07:32] LABS: BUN/Creatinine Ratio 15 (6-26); Blood Urea Nitrogen 14 mg/dL (6-20); Calcium 9.1 mg/dL (8.6-10.3); Carbon Dioxide 27 mEq/L (23-29); Chloride 102 mEq/L (98-107); Glucose 110 mg/dL (70-105); Osmolality,Calculated 287 (280-300); Potassium 3.7 mEq/L (3.5-5.1); Sodium 138 mEq/L (136-145); eGFR For African Americans > 60 (> 60); eGFR For Non-African Americans > 60 (> 60)
[2019-04-22] MEDS: Tiotropium 18 MCG inhalation IH SCH (07:39)
[2019-04-22] MEDS: Budesonide/Formoterol 160/4.5 1 PUFF INH IH SCH (07:39)
[2019-04-22] MEDS: amLODIPine 5 MG TABLET PO SCH (08:10)
[2019-04-22] MEDS: clonazePAM 0.5 MG TABLET PO SCH (08:10)
[2019-04-22] MEDS: tiZANidine 4 MG TABLET PO SCH (08:10)
[2019-04-22] MEDS: Sucralfate 1 GM TABLET PO SCH (08:10)
[2019-04-22] MEDS: *HR* Enoxaparin 40 MG/0.4 ML SYRINGE SQ SCH (08:11)
[2019-04-22] MEDS ORDERED: *HR* Enoxaparin 30 MG/0.3 ML SYRINGE SQ ONE (10:06)
--- NOTE | 2019-04-22 11:06 | Discharge Summary ---
- NOTES TO OUTPATIENT PROVIDER Notes to Outpatient Provider: Pt came with the back pain, no acute abnormalities, PT recommended outapatient physical therapy. Had IV placed in the left arm, got superficial vein thrmbosis and thrombophlebits, is taking long time to reslve, so started on xarelto 10 mg for 45 days. Please follow up on t he upper extremity swelling. BP was consistenly high in the hospital. So started on amlodipine Orders not resulted at time of discharge: Pending orders 04/20/19 11:50 Culture,Blood [BC] Stat Date of Encounter: 04/22/19 Time of Encounter: 09:00 - Discharge Diagnosis (1) Swelling of left extremity Priority: Secondary Status: Acute (2) Paresis of lower extremity Priority: Primary Status: Acute (3) Intractable low back pain Priority: Secondary Status: Acute (4) HTN (hypertension) Priority: Secondary Status: Chronic Qualifiers: Hypertension type: essential hypertension Qualified Code(s): I10 - Essential (primary) hypertension (5) COPD (chronic obstructive pulmonary disease) Priority: Secondary Status: Chronic Qualifiers: COPD type: unspecified COPD Qualified Code(s): J44.9 - Chronic obstructive pulmonary disease, unspecified (6) DVT prophylaxis Priority: Secondary Status: Acute (7) Fever Priority: Secondary Status: Acute Qualifiers: Fever type: unspecified Qualified Code(s): R50.9 - Fever, unspecified Hospital course: Mr. Murphy is a 43 year old male with a past medical history significant for hypertension, hyperlipidemia, COPD, GERD, presented to the hospital because of exacerbation of chronic low back pain resulting in lower extremity paresis. Patient got the MRI of the back did not show any new acute abnormalities. Patient was seen by the physical therapy. Recommended to him the physical therapy on outpatient basis. Will be given referral to home health [facility] physical therapy. Patient hospital course was complicated by an elevated blood pressure, he was given hydralazine and clonidine orally was in the hospital. He will be discharged in amlodipine 5 mg by mouth as it seemed that the patient has essential hypertension. Patient also developed fever, chills, leukocytosis. Evaluation revealed the patient left upper extremity was swelling at the site of IV insertion. Initially there were concerns of sepsis as the patient was having leukocytosis and fever. He was started on IV antibiotics. Ortho was consulted. Pt got dopplers of the upper extremity done which showed superficial vein thrombosis in the left upper extremity but no DVT. Antibiotics were stopped. Patient still has upper extremity swelling, redness and tenderness. Because of these signs, discussed with the patient regarding the need for the anticoagulation for short term. Based upon the data, patient will be given xarelto 10 mg for 45 days. ( Ref: haresh Gannon, et al. Lancet Haematol. 2017.) Advised pt to follow up with the PCP. - Time Spent with Patient Total time spent providing and/or coordinating discharge services: 35 mins - Discharge Medications Prescriptions: New amLODIPine [Norvasc] 5 mg PO DAILY #30 tablet Rivaroxaban [Xarelto] 10 mg PO 1700 45 Days #45 tablet Continued Montelukast [Singulair] 10 mg PO HS Albuterol Sulfate [Ventolin Hfa] 2 puff IH Q4H PRN #0 PRN Reason: Shortness Of Breath Duloxetine HCl [Cymbalta] 60 mg PO DAILY #0 Budesonide/Formoterol 160/4.5 [Symbicort 160/4.5] 2 puff IH BIDR #0 clonazePAM [Clonazepam] 0.25 - 0.5 mg PO BID PRN #0 PRN Reason: Anxiety Lidocaine Patch [Lidoderm 5% patch] 1 patch TP DAILY PRN #0 PRN Reason: Pain Tiotropium [place] [Spiriva Respimat] 2 puff IH DAILY Sucralfate [Carafate] 1 gm PO HS Buspirone HCl [Buspar] 15 mg PO BID Diclofenac Sodium 1 appl TP BID PRN PRN Reason: Pain Meloxicam 15 mg PO DAILY Methocarbamol [Robaxin] 500 mg PO TID PRN PRN Reason: Muscle Spasm Omeprazole [PriLOSEC] 40 mg PO HS Tizanidine HCl 8 mg PO Q8H Home Medications: Montelukast [Singulair] 10 mg PO HS 10/28/15 [History] Albuterol Sulfate [Ventolin Hfa] 2 puff IH Q4H PRN #0 06/15/18 [History] Budesonide/Formoterol 160/4.5 [Symbicort 160/4.5] 2 puff IH BIDR #0 06/15/18 [History] Duloxetine HCl [Cymbalta] 60 mg PO DAILY #0 06/15/18 [History] Lidocaine Patch [Lidoderm 5% patch] 1 patch TP DAILY PRN #0 06/15/18 [History] clonazePAM [Clonazepam] 0.25 - 0.5 mg PO BID PRN #0 06/15/18 [History] Tiotropium [place] [Spiriva Respimat] 2 puff IH DAILY 04/18/19 [History] Buspirone HCl [Buspar] 15 mg PO BID 04/19/19 [History] Diclofenac Sodium 1 appl TP BID PRN 04/19/19 [History] Meloxicam 15 mg PO DAILY 04/19/19 [History] Methocarbamol [Robaxin] 500 mg PO TID PRN 04/19/19 [History] Omeprazole [PriLOSEC] 40 mg PO HS 04/19/19 [History] Sucralfate [Carafate] 1 gm PO HS 04/19/19 [History] Tizanidine HCl 8 mg PO Q8H 04/19/19 [History] Rivaroxaban [Xarelto] 10 mg PO 1700 45 Days #45 tablet 04/22/19 [Rx] amLODIPine [Norvasc] 5 mg PO DAILY #30 tablet 04/22/19 [Rx] Allergies/Adverse Reactions: Allergy/AdvReac Type Severity Reaction Status Date / Time aspirin [ASA] AdvReac internal Verified 10/28/15 11:39 bleeding Cortisone AdvReac muscle Verified 10/28/15 11:39 cramps influenza virus vaccine, AdvReac Nausea Verified 10/28/15 11:39 specific [Influenza Virus Vacc,Specific] shellfish derived AdvReac Vomiting Verified 10/28/15 11:39 optifoam AdvReac Rash Uncoded 06/24/16 08:38 Date of admission: 04/21/19 15:09 Primary care physician: Rick Garcia MD Consults: 04/18/19 16:04 Consult to Occupational Therapy [CONS] Routine Comment: Evaluate, develop and implement POC Reason for Consult: difficulty ambulating Does patient have active BEDREST order?: No Is patient medically & hemodynamically stable?: Yes Patient assessed for mobility or mobilized this visit?: No Consult to Physical Therapy [CONS] Routine Comment: Evaluate, develop and implement POC Reason for Consult: difficulty ambulating Does patient have active BEDREST order?: No Is patient medically & hemodynamically stable?: Yes Patient assessed for mobility or mobilized this visit?: No Consult to Applications Manager [CONS] Routine Reason for SW Consult: ECF placement 04/18/19 16:07 Consult to Orthopedic Surgery [CONS] Stat Consulting Provider: Andrew Mary Jr Reason for Consult: unable to stand - stable annular disc bulge at L4-L5 with associated central annular tear Time Notified: 16:08 Call Completed: Yes 04/18/19 20:54 Consult to Nutrition [CONS] Routine Comment: Consulting Provider: NUTRITION Reason for Dietary Consult: MST Score 04/21/19 09:30 Consult to Orthopedic Surgery [CONS] Routine Consulting Provider: Jean Kang Reason for Consult: Left arm swelling , needs I & D Call Completed: Yes - Constitutional Vitals: Temp Pulse Resp BP Pulse Ox 98.5 F 87 16 158/87 95 04/22/19 06:40 04/22/19 06:40 04/22/19 07:42 04/22/19 06:40 04/22/19 07:42 General appearance: Present: A&O X 3 Exam: General: Alert and oriented, moderate physical distress, able to follow commands. Respiratory: Normal vesicular breathing, no added sounds, breathing equal in both sides. CVS: Normal heart sounds, no murmurs, no edema. Extremities: Left arm emaxined , redness and swellign noted, decreaed in size, Pulses are equal on both sided both radail and brachial .Power 5/5 , no loss of snsations. Lymph nodes: No lymphadenopathy Gastrointestinal: Soft, nontender abdomen, normal abdominal sounds. No distention noted. Genitourinary: No paravertebral tenderness. Neurological: Alert and oriented. No focal deficits. - Patient Status Disposition: Home Health Service Condition: Good Functional capacity at discharge: uses cane/walker - Discharge Instructions Follow Up With: Rick Garcia MD [Primary Care Provider] - Additional Instructions: Follow-up appointments: If there is not an appointment listed below, please call your physician and schedule a follow-up appointment. If you have congestive heart failure and your symptoms return, make an appointment with your physician. Medication List: Carry an up to date list of medications you are taking at all time. We have given you an updated medication list including any new medications that you have been prescribed. Please provide that list to your primary provider Symptoms: If your condition changes or you experience any of the following symptoms, notify your physician immediately: Unusual or worsening pain, fever, persistent nausea and vomiting, bleeding, increase in swelling (especially in your legs), sudden weight gain, extreme dizziness, chest pain, increased drainage or redness from a wound or incision. Go to the emergency department if you experience a problem with breathing. Weights: If you have a history of swelling or shortness of breath, weigh yourself daily and notify your physician if you have a weight gain of two or more pounds in one day or 5 or more pounds in a week. If you experience any of the warning signs for stroke: Sudden numbness or weakness of the face, arm or leg; especially on one side of the body, sudden confusion, trouble speaking or understanding, sudden trouble seeing in one or both eyes, sudden trouble walking, dizziness, loss of balance or coordination, sudden sever headache with no cause; Call 911 or go to the emergency room. Stroke is a medical emergency. Some risk factors for stroke: Age, cigarette smoking, diabetes, excessive alcohol consumption, family history, high blood pressure, overweight, physical inactivity, prior stroke, heart attack , diagnosis of carotid artery stenosis or other artery disease. If you smoke, STOP: Smoking or tobacco use significantly increases your risk of heart and lung disease. Your chance of disease greatly increases if you continue to smoke. For more information, call the [place] tobacco quit line for smoking cessation 9-181-GNHZ-NOW ( ) - Diet and Activity Activity: as per physical therapy Diet: advance to your usual diet
--- NOTE | 2019-04-22 11:23 | Physician Discharge Referral ---
Home Health/Hosp Referral Info Transfer to: Home Health - Diagnosis (1) Swelling of left extremity Priority: Secondary Status: Acute (2) Paresis of lower extremity Priority: Primary Status: Acute (3) Intractable low back pain Priority: Secondary Status: Acute (4) HTN (hypertension) Priority: Secondary Status: Chronic (5) COPD (chronic obstructive pulmonary disease) Priority: Secondary Status: Chronic (6) DVT prophylaxis Priority: Secondary Status: Acute (7) Fever Priority: Secondary Status: Acute - Respiratory Orders Smoking Cessation: Smoking cessation has been advised. For more information, call the [place] Tobacco Quit Line at 0-426-KNYMNOW. - Services Needed Following services are medically necessary services: Nursing, Physical Therapy (Pt may need nursign for left upper extremity care), Occupational Therapy - Transfer Medications Prescriptions: amLODIPine [Norvasc] 5 mg PO DAILY #30 tablet Rivaroxaban [Xarelto] 10 mg PO 1700 45 Days #45 tablet Home Medications: Montelukast [Singulair] 10 mg PO HS 10/28/15 [History] Albuterol Sulfate [Ventolin Hfa] 2 puff IH Q4H PRN #0 06/15/18 [History] Budesonide/Formoterol 160/4.5 [Symbicort 160/4.5] 2 puff IH BIDR #0 06/15/18 [History] Duloxetine HCl [Cymbalta] 60 mg PO DAILY #0 06/15/18 [History] Lidocaine Patch [Lidoderm 5% patch] 1 patch TP DAILY PRN #0 06/15/18 [History] clonazePAM [Clonazepam] 0.25 - 0.5 mg PO BID PRN #0 06/15/18 [History] Tiotropium [place] [Spiriva Respimat] 2 puff IH DAILY 04/18/19 [History] Buspirone HCl [Buspar] 15 mg PO BID 04/19/19 [History] Diclofenac Sodium 1 appl TP BID PRN 04/19/19 [History] Meloxicam 15 mg PO DAILY 04/19/19 [History] Methocarbamol [Robaxin] 500 mg PO TID PRN 04/19/19 [History] Omeprazole [PriLOSEC] 40 mg PO HS 04/19/19 [History] Sucralfate [Carafate] 1 gm PO HS 04/19/19 [History] Tizanidine HCl 8 mg PO Q8H 04/19/19 [History] Rivaroxaban [Xarelto] 10 mg PO 1700 45 Days #45 tablet 04/22/19 [Rx] amLODIPine [Norvasc] 5 mg PO DAILY #30 tablet 04/22/19 [Rx] Allergies/Adverse Reactions: Allergy/AdvReac Type Severity Reaction Status Date / Time aspirin [ASA] AdvReac internal Verified 10/28/15 11:39 bleeding Cortisone AdvReac muscle Verified 10/28/15 11:39 cramps influenza virus vaccine, AdvReac Nausea Verified 10/28/15 11:39 specific [Influenza Virus Vacc,Specific] shellfish derived AdvReac Vomiting Verified 10/28/15 11:39 optifoam AdvReac Rash Uncoded 06/24/16 08:38 Certification: Further, I certify that my clinical findings support that this patient is homebound (i.e. absences from home require considerable and taxing effort and are for medical reasons or voodoo services or infrequently or short duration when for other reasons) because: Homebound Reason: Patient requires assistance of a person or device to safely leave home Attestation: My signature below is to certify that this patient is under my care and that I, or nurse practitioner, or a physician's pharmacy sales assistant working with me, has a [id number] encounter with this patient.
== END 2019-04-22 11:37 | disposition home health service (06) | DRG 347 ==
LOC: EMEROOARM 12:08 → 3NENU 12:08 → SUATTDRO 18:35 → 3NENU 19:55
PROVIDERS: ADMIT Student in an Organized Health Care Education/Training Program; ATTEND Internal Medicine

== ENCOUNTER 2019-07-24 10:30 | Inpatient (IN) ==
[2019-07-24] MEDS ORDERED: Isovue-370 500 ML BOTTLE IVP ONE (11:02)
[2019-07-24] MEDS ORDERED: cefTRIAXone 1,000 MG in Water for inj. (sterile) 10 ML IVP ONE (11:02)
[2019-07-24] MEDS ORDERED: Fluorescein Sodium STRIP OP ONE (11:04)
[2019-07-24] MEDS ORDERED: Tetracaine 0.5% OPTH 80 DROP/4 ML BOTTLE LEFT EYE ONE (11:04)
[2019-07-24] MEDS ORDERED: Acyclovir 800 MG in D5% in Water 250 ML IVPB ONE (11:06)
[2019-07-24 11:49] LABS: Eosinophils # 0.1 K/mcL (0.0-0.6); Hematocrit 49.1 % (37.5-50.1); Hemoglobin 17.9 g/dL (12.9-16.9); Mean Corpuscular HGB Conc 36.5 g/dL (31.6-35.5); Mean Corpuscular Volume 90.6 fL (83.0-100.0); Mean Platelet Volume 9.8 fL (9.4-12.4); Platelet Count 189 K/mcL (140-400); Red Blood Count 5.42 M/mcL (4.19-5.50); White Blood Count 6.5 K/mcL (4.3-11.1)
[2019-07-24 12:04] LABS: Lymphocytes # 1.6 K/mcL (0.6-4.6); Monocytes # 1.3 K/mcL (0.0-1.3); Neutrophils # 3.5 K/mcL (1.6-8.9); Platelet Estimate Normal (Normal)
[2019-07-24 12:08] LABS: Alanine Aminotransferase 21 Units/L (7-52); Albumin 4.8 g/dL (3.5-5.7); Albumin/Globulin Ratio 1.8 (1.1-2.2); Alkaline Phosphatase 109 Units/L (34-104); Aspartate Amino Transferase 16 Units/L (13-39); BUN/Creatinine Ratio 14 (6-26); Bilirubin,Total 0.7 mg/dL (0.3-1.0); Blood Urea Nitrogen 13 mg/dL (6-20); Calcium 9.9 mg/dL (8.6-10.3); Carbon Dioxide 26 mEq/L (23-29); Chloride 100 mEq/L (98-107); Globulin 2.6 g/dL (2.4-3.5); Glucose 159 mg/dL (70-105); Osmolality,Calculated 283 (280-300); Potassium 3.1 mEq/L (3.5-5.1); Sodium 135 mEq/L (136-145); Total Protein 7.4 g/dL (6.4-8.9); eGFR For African Americans > 60 (> 60); eGFR For Non-African Americans > 60 (> 60)
[2019-07-24] MEDS ORDERED: Potassium Chloride Elixir 20 MEQ/15 ML UDC PO ONE (12:10)
[2019-07-24] MEDS ORDERED: Ondansetron 4 MG/2 ML VIAL IVP PRN (14:12)
[2019-07-24] MEDS ORDERED: Acetaminophen 325 MG TABLET PO PRN (14:12)
[2019-07-24] MEDS ORDERED: Naloxone 0.4 MG/ML INJ IVP PRN (14:12)
[2019-07-24] MEDS ORDERED: clonazePAM 0.5 MG TABLET PO PRN (14:14)
[2019-07-24] MEDS ORDERED: Ipratropium/Albuterol Neb 3 ML IH PRN (14:33)
[2019-07-24] MEDS: Fluticasone Propionate Nasal 50 MCG/SPRAY BOTTLE NS SCH (15:53)
[2019-07-24] MEDS: Nicotine 21 MG PATCH.TD24 TD SCH (15:53)
[2019-07-24] MEDS: tiZANidine 4 MG TABLET PO SCH ×2 (15:53→20:25)
[2019-07-24] MEDS ORDERED: Methocarbamol 500 MG TABLET PO PRN (16:20)
[2019-07-24] MEDS: Oxymetazoline Nasal SPRAY BOTTLE NS SCH (17:38)
[2019-07-24] MEDS: Acyclovir 800 MG in D5% in Water 250 ML IVPB SCH (20:21)
[2019-07-24] MEDS: Sucralfate 1 GM TABLET PO SCH (20:24)
[2019-07-24] MEDS: Budesonide/Formoterol 160/4.5 1 PUFF INH IH SCH (20:24)
[2019-07-24] MEDS ORDERED: Cefdinir 300 MG CAPSULE PO SCH (21:00)
[2019-07-24] MEDS: *HR* HYDROcodone/Acet 5/325 mg TABLET PO PRN (23:52)
[2019-07-25] MEDS: Acyclovir 800 MG in D5% in Water 250 ML IVPB SCH ×3 (03:27→20:15)
[2019-07-25] MEDS: Oxymetazoline Nasal SPRAY BOTTLE NS SCH ×2 (03:31→18:29)
[2019-07-25] MEDS: traMADol 50 MG TABLET PO PRN ×2 (03:34→20:25)
[2019-07-25] MEDS: tiZANidine 4 MG TABLET PO SCH ×3 (05:31→22:16)
[2019-07-25 06:03] LABS: Hematocrit 45.5 % (37.5-50.1); Hemoglobin 15.7 g/dL (12.9-16.9); Mean Corpuscular HGB Conc 34.5 g/dL (31.6-35.5); Mean Corpuscular Hemoglobin 32.6 pg (28.0-33.3); Mean Corpuscular Volume 94.6 fL (83.0-100.0); Mean Platelet Volume 9.8 fL (9.4-12.4); Platelet Count 175 K/mcL (140-400); Red Blood Count 4.81 M/mcL (4.19-5.50); Red Cell Distribution Width 12.8 % (11.5-14.5); White Blood Count 6.4 K/mcL (4.3-11.1)
[2019-07-25 06:23] LABS: BUN/Creatinine Ratio 18 (6-26); Blood Urea Nitrogen 16 mg/dL (6-20); Calcium 9.1 mg/dL (8.6-10.3); Carbon Dioxide 26 mEq/L (23-29); Chloride 106 mEq/L (98-107); Glucose 99 mg/dL (70-105); Osmolality,Calculated 289 (280-300); Potassium 3.6 mEq/L (3.5-5.1); Sodium 139 mEq/L (136-145); eGFR For African Americans > 60 (> 60); eGFR For Non-African Americans > 60 (> 60)
[2019-07-25] MEDS: Budesonide/Formoterol 160/4.5 1 PUFF INH IH SCH ×2 (07:41→22:01)
[2019-07-25] MEDS ORDERED: Fluticasone Propionate Nasal 50 MCG/SPRAY BOTTLE NS SCH (09:00)
[2019-07-25] MEDS: Nicotine 21 MG PATCH.TD24 TD SCH (09:16)
[2019-07-25] MEDS: amLODIPine 5 MG TABLET PO SCH (09:16)
[2019-07-25] MEDS: cefTRIAXone 1,000 MG in Water for inj. (sterile) 10 ML IVP SCH (09:17)
[2019-07-25] MEDS: Fluticasone Propionate Nasal 50 MCG/SPRAY BOTTLE NS SCH (09:18)
[2019-07-25] MEDS: Tiotropium 18 MCG inhalation IH SCH (10:39)
[2019-07-25] MEDS: *HR* HYDROcodone/Acet 5/325 mg TABLET PO PRN (16:12)
[2019-07-25] MEDS: Sucralfate 1 GM TABLET PO SCH (20:17)
[2019-07-26] MEDS: Acyclovir 800 MG in D5% in Water 250 ML IVPB SCH ×3 (03:59→19:37)
[2019-07-26] MEDS: Oxymetazoline Nasal SPRAY BOTTLE NS SCH ×2 (05:15→17:40)
[2019-07-26] MEDS: tiZANidine 4 MG TABLET PO SCH ×3 (05:15→21:27)
[2019-07-26] MEDS: Budesonide/Formoterol 160/4.5 1 PUFF INH IH SCH ×2 (08:01→20:11)
[2019-07-26] MEDS: Tiotropium 18 MCG inhalation IH SCH (08:02)
[2019-07-26] MEDS: cefTRIAXone 1,000 MG in Water for inj. (sterile) 10 ML IVP SCH (09:56)
[2019-07-26] MEDS: amLODIPine 5 MG TABLET PO SCH (09:57)
[2019-07-26] MEDS: Nicotine 21 MG PATCH.TD24 TD SCH (09:58)
[2019-07-26] MEDS: Fluticasone Propionate Nasal 50 MCG/SPRAY BOTTLE NS SCH (10:02)
[2019-07-26] MEDS: traMADol 50 MG TABLET PO PRN (21:27)
[2019-07-26] MEDS: Sucralfate 1 GM TABLET PO SCH (21:27)
[2019-07-27] MEDS: Acyclovir 800 MG in D5% in Water 250 ML IVPB SCH (04:03)
[2019-07-27 04:48] LABS: Hematocrit 43.5 % (37.5-50.1); Hemoglobin 15.3 g/dL (12.9-16.9); Mean Corpuscular HGB Conc 35.2 g/dL (31.6-35.5); Mean Corpuscular Hemoglobin 32.7 pg (28.0-33.3); Mean Corpuscular Volume 92.9 fL (83.0-100.0); Mean Platelet Volume 10.3 fL (9.4-12.4); Platelet Count 195 K/mcL (140-400); Red Blood Count 4.68 M/mcL (4.19-5.50); Red Cell Distribution Width 12.5 % (11.5-14.5); White Blood Count 8.2 K/mcL (4.3-11.1)
[2019-07-27 04:59] LABS: BUN/Creatinine Ratio 19 (6-26); Blood Urea Nitrogen 15 mg/dL (6-20); Calcium 9.3 mg/dL (8.6-10.3); Carbon Dioxide 25 mEq/L (23-29); Chloride 105 mEq/L (98-107); Glucose 110 mg/dL (70-105); Osmolality,Calculated 287 (280-300); Sodium 138 mEq/L (136-145); eGFR For African Americans > 60 (> 60); eGFR For Non-African Americans > 60 (> 60)
[2019-07-27] MEDS: tiZANidine 4 MG TABLET PO SCH (05:57)
[2019-07-27 06:30] VITALS: BP 156/71
[2019-07-27] MEDS: Oxymetazoline Nasal SPRAY BOTTLE NS SCH (06:59)
[2019-07-27] MEDS: Tiotropium 18 MCG inhalation IH SCH (07:50)
[2019-07-27] MEDS: Budesonide/Formoterol 160/4.5 1 PUFF INH IH SCH (07:51)
[2019-07-27] MEDS: Nicotine 21 MG PATCH.TD24 TD SCH (08:41)
[2019-07-27] MEDS: cefTRIAXone 1,000 MG in Water for inj. (sterile) 10 ML IVP SCH (08:41)
[2019-07-27] MEDS: amLODIPine 5 MG TABLET PO SCH (08:41)
[2019-07-27] MEDS: Fluticasone Propionate Nasal 50 MCG/SPRAY BOTTLE NS SCH (08:42)
[2019-07-27] MEDS ORDERED: Aminoglycoside Consult 1 EACH MC ONE (11:14)
== END 2019-07-27 11:15 | disposition home or self-care (01) | DRG 383 ==
LOC: EMEROOARM 10:30 → 3ANU 10:30 → SUATTDRO 14:15 → 3ANU 14:36
PROVIDERS: ADMIT Student in an Organized Health Care Education/Training Program; ATTEND Internal Medicine